=== PATIENT | male | born 1985 ===

== ENCOUNTER 2020-04-05 17:02 | Emergency (ER) | payer SELFPAY ==
[~2020-04-05] VITALS: Ht 170.2 cm; Wt 80.0 kg
[2020-04-05 17:41] LABS: BASOPHILS % (AUTO) 0 % (0-1); EOSINOPHILS % (AUTO) 1 % (1-7); LYMPHOCYTES % (AUTO) 11 % (22-44); MEAN CORPUSCULAR HEMOGLOBIN 30.3 pg (27.5-34.5); MEAN CORPUSCULAR HGB CONC 34.3 g/dL (33.2-36.2); MEAN PLATELET VOLUME 6.6 fL (7.4-10.4); MONOCYTES % (AUTO) 6 % (2-9); NEUTROPHILS % (AUTO) 81 % (42-75); PLATELET COUNT 478 x10^3/uL (130-400); RED BLOOD COUNT 4.96 x10^6/uL (4.38-5.82); RED CELL DISTRIBUTION WIDTH 13.4 % (9.4-14.8)
[2020-04-05 17:47] LABS: ANION GAP 3 mmol/L (5-15); CALCIUM 9.4 mg/dL (8.5-10.1); CHLORIDE 103 mmol/L (98-107); CREATININE 0.83 mg/dL (0.7-1.3)
[2020-04-05 17:51] LABS: MD NO
--- NOTE | 2020-04-05 18:03 | NUR ---
PT BACK FROM IMAGING
[2020-04-05 18:41] LABS: MICROSCOPIC INDICATED
--- NOTE | 2020-04-05 18:52 | NUR ---
BEDSIDE REPORT RECEIVED FROM JOCELYNE RODRIGUEZ
--- NOTE | 2020-04-05 18:59 | NUR ---
PT SITTING SUPINE ON [facility]ETO [facility] VSS. PT DENIES ANY NEEDS AT THIS TIME. CALL LIGHT WITHIN REACH. GUARD AT BEDSIDE FROM [facility].
[2020-04-05] MEDS ORDERED: AZITHROMYCIN 500 MG TABLET PO ONE (19:00)
[2020-04-05] MEDS ORDERED: CEFTRIAXONE 1,000 MG IM ONE (19:00)
[2020-04-05] MEDS ORDERED: AZITHROMYCIN 250 MG TABLET ONE (19:18)
[2020-04-05] MEDS ORDERED: CEFTRIAXONE 1,000 MG ONE (19:18)
[2020-04-05 19:44] VITALS: BP 106/84
--- NOTE | 2020-04-05 19:44 | NUR ---
Patient and escort given discharge instructions and they have confirmed that they understand the instructions.
== END 2020-04-05 19:46 | disposition home or self-care (01) ==
LOC: ED 17:32
DX: N45.2 Orchitis (principal); N45.1 Epididymitis; N50.812 Left testicular pain; R10.9 Unspecified abdominal pain
CPT/HCPCS: 36415; 76870; 80048; 81001; 82040; 85025; 87086; 87491; 87591; 96372; 99284; J0696